=== PATIENT | female | born 1990 | race Caucasian/White ===

== ENCOUNTER 2020-12-04 16:25 | Outpatient (CLI) | payer OTHER ==
--- NOTE | 2020-12-04 17:13 | XRAY Report ---
PROCEDURE: Foot 3 View LT INDICATIONS: LEFT FOOT PAIN TECHNIQUE: 4 views of the foot were acquired. COMPARISON: None FINDINGS: Bones: Moderate hallux valgus is seen. Bipartite medial sesamoid of first metatarsal head is also not ed. No fractures or dislocations. No suspicious bony lesions. Soft tissues: No tibiotalar joint effusion. Achilles tendon appears normal. IMPRESSION: Moderate hallux valgus. No fracture or dislocation. No suspicious bony lesion. Reviewed by: Luciano Marshall MD on 12/04/2020 5:11 PM PDT Approved by: Luciano Marshall MD on 12/04/2020 5:11 PM PDT Station ID: [id number]
== END 2020-12-04 23:59 | disposition home or self-care (01) ==
LOC: DI.N 16:25
PROVIDERS: ATTEND Nurse Practitioner
DX: M20.12 Hallux valgus (acquired), left foot (principal)

== ENCOUNTER 2021-08-06 08:45 | Outpatient (CLI) | payer OTHER ==
--- NOTE | 2021-08-06 11:09 | MRI Report ---
PROCEDURE: Lumbar Spine W/O INDICATIONS: LOW BACK PAIN TECHNIQUE: Noncontrast sagittal T1 spin echo and T2 fast echo, sagittal STIR, axial T1 and T2 fast spin echo thr ough the lumbar spine. In cases with scoliosis, additional coronal T2 fast spin echo may be performe d. COMPARISON: None. FINDINGS: Image quality: Excellent. Alignment and Curvature: There is mild straightening of the normal lumbar lordosis, which may be sec ondary to positioning. Bone Marrow: Marrow is of normal overall signal. No acute vertebral body compression fractures. Spinal Cord: Conus medullaris terminates at the L1 vertebral body level. Visualized cord demonstrat es normal signal and size. Paraspinous Soft Tissues: No paravertebral masses. T12-L1, L1-2, and L2-3: No significant disc bulging, spinal canal stenosis, or neuroforaminal narrow ing. L3-L4: There is disc desiccation and mild circumferential disc bulging with a small posterior annul ar fissure. Findings are superimposed on congenitally shortened pedicles and result in mild narrowing of the spinal canal without significant neural foraminal narrowing. L4-L5: There is disc desiccation and mild circumferential disc bulging with a small posterior annul ar fissure and mild facet hypertrophy. Findings are superimposed on congenitally shortened pedicles a nd result in mild narrowing of the spinal canal and crowding of the bilateral lateral recesses withou t significant neural foraminal narrowing. L5-S1: No significant disc bulging, spinal canal stenosis, or neuroforaminal narrowing. IMPRESSION: At the L3-4 and L4-5 levels, there are small posterior annular fissures as well as disc desiccation a nd circumferential disc bulging superimposed on congenitally shortened pedicles, which result in mild spinal canal narrowing at these levels without significant neuroforaminal narrowing. Reviewed by: Rex Cruz MD on 08/06/2021 11:08 AM PDT Approved by: Rex Cruz MD on 08/06/2021 11:08 AM PDT Station ID: [id number]
== END 2021-08-06 08:46 | disposition home or self-care (01) ==
LOC: DI 08:45
DX: M51.36 Other intervertebral disc degeneration, lumbar region (principal); M48.061 Spinal stenosis, lumbar region without neurogenic claudication; M47.816 Spondylosis without myelopathy or radiculopathy, lumbar region

== ENCOUNTER 2022-01-06 10:07 | Outpatient (CLI) | payer OTHER ==
--- NOTE | 2022-01-06 12:12 | MRI Report ---
PROCEDURE: Cervical Spine W/O INDICATIONS: CERVICALGIA TECHNIQUE: Noncontrast sagittal T1 spin echo and T2 fast spin echo, sagittal STIR, foraminal oblique sagittal T2 fast spin echo, and axial gradient echo or T2 fast spin echo through the cervical spine. COMPARISON: None. FINDINGS: Image quality: Excellent. Alignment and Curvature: Normal cervical spine vertebral body height and alignment. Bone Marrow: No suspicious focal marrow signal abnormality or bone marrow edema. Spinal Cord: Normal morphology and signal intensity of the cervical cord. Regional Soft Tissues: Partially visualized T2 hyperintense cystic lesion in the right prevertebral s oft tissues, with at least some septations or solid features of complexity at the inferior aspect, me asuring at least 3.2 cm in craniocaudal dimension and approximately 1.7 x 1.5 cm maximum axial dimens ion. This is incompletely characterized due to the presence of saturation bands through the anterior soft tissues. C2-C3: Normal in appearance. C3-C4: Normal in appearance. C4-C5: Normal in appearance. C5-C6: Normal in appearance. C6-C7: Normal in appearance. C7-T1: Normal in appearance. IMPRESSION: No spinal canal stenosis, neural foraminal stenosis, or evidence of focal nerve root impingement to e xplain the provided history of left radicular symptoms. No cord signal abnormality or other significant intradural pathology. Partially visualized cystic lesion in the prevertebral soft tissues right of midline with at least a few septations or solid/nodular features of complexity inferiorly. Complete characterization is recom mended with contrast-enhanced MRI or CT of the neck. 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 Reviewed by: Zeyad Jaeger MD on 01/06/2022 12:11 PM PDT Approved by: Zeyad Jaeger MD on 01/06/2022 12:11 PM PDT Station ID: [id number]
--- NOTE | 2022-01-07 13:06 | MRI Report ---
PROCEDURE: Thoracic Spine W/O INDICATIONS: CERVICALGIA TECHNIQUE: Noncontrast sagittal T1 spine echo and T2 fast spin echo, sagittal STIR, axial T1 and T2 fast spin ec ho through the thoracic spine. COMPARISON: MRI cervical spine 01/06/2022 FINDINGS: Image quality: Excellent. Alignment and Curvature: There is normal bony alignment. Bone Marrow: Marrow is of normal overall signal. No acute vertebral body compression fractures. Spinal Cord: Visualized spinal cord is normal in size and signal. Paraspinous Soft Tissues: No paravertebral masses. Miscellaneous: On axial images, central canal and foramina appear widely patent at all scanned level s. There is appearance of subcentimeter nodular intensities within the lungs bilaterally. Increased T2 signal focus is present within the lower right thyroid lobe and to a lesser degree left thyroid lo be as well as isthmus. No priors are available for comparison. IMPRESSION: No spinal stenosis or foraminal narrowing. Appearing nodular densities within the lungs as above. While these could be artifactual given respira tory motion, recommend CT chest for further evaluation. Heterogeneous focus of T2 hyperintensity within the right thyroid lobe into lesser extent isthmus and left lobe. These may represent cysts or adenomas. Thyroid ultrasound is recommended for further eval uation. Reviewed by: Nancy Logan MD on 01/07/2022 1:05 PM PDT Approved by: Nancy Logan MD on 01/07/2022 1:05 PM PDT Station ID: [id number]
== END 2022-01-06 10:08 | disposition home or self-care (01) ==
LOC: DI 10:07
DX: M54.2 Cervicalgia (principal); M79.9 Soft tissue disorder, unspecified; R91.8 Other nonspecific abnormal finding of lung field

== ENCOUNTER 2022-04-09 19:54 | Emergency (ER) | payer OTHER ==
--- OUTSIDE RECORDS SUMMARY | 2022-04-09 20:26 | EXTERNAL MEDICAL SUMMARY RPT | Continuity of Care Document ---
:1990 Author Organization [facility] Address [address] [place] [address] Phone Care Team Providers Name Role Phone Unavailable Unavailable Unavailable Narewski Barrel Coater, Xochilt Unavailable Unavailable Dangelo Shell Pa-C Unavailable Unavailable Narewski Barrel Coater, Xochilt Unavailable Unavailable Sylvia, Provider Unavailable Unavailable Allergies No information. Encounters No information. Functional Status No information. Immunizations No information. Medications date description facility 2022-01-12 00:00 propranolol All 2022-03-19 00:00 propranolol All 2022-03-19 00:00 propranolol All 2022-03-23 00:00 propranolol All 2022-01-12 00:00 prazosin All 2022-03-19 00:00 prazosin All 2022-03-19 00:00 prazosin All 2022-03-23 00:00 prazosin All 2022-01-12 00:00 hydroxyzine hcl All 2022-03-19 00:00 hydroxyzine hcl All 2022-03-19 00:00 hydroxyzine hcl All 2022-03-23 00:00 hydroxyzine hcl All 2022-01-12 00:00 hydroxyzine hcl All 2022-03-19 00:00 hydroxyzine hcl All 2022-03-19 00:00 hydroxyzine hcl All 2022-03-23 00:00 hydroxyzine hcl All 2022-01-12 00:00 methocarbamol All 2022-03-19 00:00 methocarbamol All 2022-03-19 00:00 methocarbamol All 2022-03-23 00:00 methocarbamol All 2022-01-12 00:00 prazosin All 2022-03-19 00:00 prazosin All 2022-03-19 00:00 prazosin All 2022-03-23 00:00 prazosin All 2022-01-12 00:00 propranolol All 2022-03-19 00:00 propranolol All 2022-03-19 00:00 propranolol All 2022-03-23 00:00 propranolol All 2022-01-12 00:00 methocarbamol All 2022-03-19 00:00 methocarbamol All 2022-03-19 00:00 methocarbamol All 2022-03-23 00:00 methocarbamol All 2022-01-12 00:00 fluoxetine All 2022-03-19 00:00 fluoxetine All 2022-03-19 00:00 fluoxetine All 2022-03-23 00:00 fluoxetine All 2022-01-12 00:00 fluoxetine All 2022-03-19 00:00 fluoxetine All 2022-03-19 00:00 fluoxetine All 2022-03-23 00:00 fluoxetine All 2022-01-12 00:00 prazosin All 2022-03-19 00:00 prazosin All 2022-03-19 00:00 prazosin All 2022-03-23 00:00 prazosin All 2022-01-12 00:00 methocarbamol All 2022-03-19 00:00 methocarbamol All 2022-03-19 00:00 methocarbamol All 2022-03-23 00:00 methocarbamol All 2022-01-12 00:00 propranolol All 2022-03-19 00:00 propranolol All 2022-03-19 00:00 propranolol All 2022-03-23 00:00 propranolol All 2022-01-12 00:00 prazosin All 2022-03-19 00:00 prazosin All 2022-03-19 00:00 prazosin All 2022-03-23 00:00 prazosin All 2022-01-12 00:00 fluoxetine All 2022-03-19 00:00 fluoxetine All 2022-03-19 00:00 fluoxetine All 2022-03-23 00:00 fluoxetine All 2022-01-12 00:00 hydroxyzine hcl All 2022-03-19 00:00 hydroxyzine hcl All 2022-03-19 00:00 hydroxyzine hcl All 2022-03-23 00:00 hydroxyzine hcl All 2022-01-12 00:00 fluoxetine All 2022-03-19 00:00 fluoxetine All 2022-03-19 00:00 fluoxetine All 2022-03-23 00:00 fluoxetine All 2022-01-12 00:00 methocarbamol All 2022-03-19 00:00 methocarbamol All 2022-03-19 00:00 methocarbamol All 2022-03-23 00:00 methocarbamol All 2022-01-12 00:00 propranolol All 2022-03-19 00:00 propranolol All 2022-03-19 00:00 propranolol All 2022-03-23 00:00 propranolol All 2022-01-12 00:00 hydroxyzine hcl All 2022-03-19 00:00 hydroxyzine hcl All 2022-03-19 00:00 hydroxyzine hcl All 2022-03-23 00:00 hydroxyzine hcl All Problems date description facility 2022-03-19 00:00 Avulsion of toenail All 2022-03-19 00:00 Avulsion of toenail All 2022-03-19 00:00 Avulsion of toenail All 2022-03-19 00:00 Laceration without foreign body of left great toe with All damage to nail, initial encounter 2022-03-19 00:00 Laceration without foreign body of left great toe with All damage to nail, initial encounter 2022-03-19 00:00 Laceration without foreign body of left great toe with All damage to nail, initial encounter Procedures date description facility 2022-03-19 00:00 Visit Code Hold All 2022-03-19 00:00 Visit Code Hold All 2022-03-19 00:00 Visit Code Hold All Results/Labs No information. Social History No information. Vital Signs date measurement value units 2022-03-19 00:00 BMI 24.68 kg/m2 2022-03-19 00:00 BP_diastolic 75 mmHg 2022-03-19 00:00 BP_systolic 104 mmHg 2022-03-19 00:00 heart_rate 74 /min 2022-03-19 00:00 height_metric 170.18 cm 2022-03-19 00:00 height_standard 67 in 2022-03-19 00:00 respiration_rate 16 /min 2022-03-19 00:00 temperature_metric 36.44 C 2022-03-19 00:00 temperature_standard 97.6 F 2022-03-19 00:00 weight_metric 71.21 kg 2022-03-19 00:00 weight_standard 157 lb
[2022-04-09] MEDS ORDERED: IBUPROFEN 600 MG TABLET PO STA (21:22)
[2022-04-09] MEDS ORDERED: HYDROcod/ACET 5/325 Prepack 4 PO STA (21:23)
--- NOTE | 2022-04-09 21:31 | XRAY Report ---
PROCEDURE: Ribs w/PA Chest RT INDICATIONS: fell snowboarding, c/o R rib cage pain. TECHNIQUE: 2 views of the right ribs were acquired, along with a single view chest. COMPARISON: None. FINDINGS: Surgical changes and devices: None. Bones and chest wall: No displaced rib fracture identified. No suspicious bony lesions. Overlying s oft tissues appear unremarkable. Lungs and pleura: No pleural effusions or pneumothorax. Lungs appear clear. Mediastinum: Mediastinal contours appear normal. Heart size is normal. IMPRESSION: 1. No displaced rib fracture identified. Reviewed by: Kaushal Cutler MD on 04/09/2022 9:30 PM PST Approved by: Kaushal Cutler MD on 04/09/2022 9:30 PM PST Station ID: [id number]
--- NOTE | 2022-04-09 21:45 | ED Physician Documentation ---
History of Present Illness - Stated complaint Stated Complaint: RIB PX - Chief complaint Chief Complaint: Trauma Ch/Bk - History obtained from History obtained from: Patient - History of Present Illness Timing: How many days ago (5) Pain level now: 6 Improved by: rest Worsened by: movement, palpation, deep inspiration - Additonal information Additional information: HPI from patient. Patient complains of right upper anterior chest pain as well as some right upper parathoracic back pain. This pain was of sudden onset 5 days ago when she fell while snowboarding in [place]. Denies head injury, denies loss of consciousness.Pain is distinctly worse with palpation, deep inspiration.She denies cough, hemoptysis, shortness of breath.She has not taken anything for this pain. Review of Systems Constitutional: denies: Fever Cardiac: reports: Chest pain / pressure Respiratory: denies: Dyspnea, Cough, Hemoptysis GI: denies: Abdominal Pain : denies: Now EGA Musculoskeletal: reports: Back pain (right upper parathoracic). denies: Neck pain, Extremity pain, Joint pain Neurologic: denies: Headache, Head injury, LOC PD PAST MEDICAL HISTORY - Past Medical History Past Medical History: No - Present Medications Home Medications: Ambulatory Orders Medication Instructions Recorded Confirmed HYDROcod/ACETAM 5/325 [[place] 5/325] 1 - 2 tablet PO Q6H PRN #14 tablet 04/09/22 Ibuprofen [Motrin] 600 mg PO Q6H PRN #20 tab 04/09/22 - Allergies Allergies/Adverse Reactions: Allergies Allergy/AdvReac Type Severity Reaction Status Date / Time No Known Drug Allergies Allergy Verified 04/09/22 20:36 PD ED PE NORMAL - Vitals Vital signs reviewed: Yes - General General: Alert and oriented X 3, No acute distress, Well developed/nourished - Respiratory Respiratory: No respiratory distress, Clear bilaterally - Abdomen Abdomen: Soft, Non tender - Back Back: No spinal TTP PD ED PE EXPANDED - Cardiac Cardiac: Chest wall TTP (right anterior upper chest wall ) Results - Vitals Vitals: Vital Signs - 24 hr 04/09/22 20:33 Temperature 36.0 C L Heart Rate 75 Respiratory 15 Rate Blood Pressure 108/70 O2 Saturation 99 Oxygen O2 Source Room air - Rads (name of study) right ribs w/ PA chest xrays Radiology: Prelim report reviewed, EMP read indepedently, See rad report PD Medical Decision Making - ED course Complexity details: reviewed results, considered differential, d/w patient ED course: HPI is from patient. Plain film x-rays of the right ribs along with a single view PA chest were performed. I see no evidence of abnormality on these x-rays, specifically no evidence of rib fracture, hemo-/pneumothorax, pulmonary contusion. Results were discussed with patient. At this time, the presumed diagnosis is chest wall contusion. She has not taken anything for the pain yet. She says she had difficulty sleeping last night because of the pain. She is given 600 mg ibuprofen p.o. in the ER prior to discharge, and I provided a take-home pack of Vicodin to be used if the ibuprofen alone is ineffective. Return precautions were discussed including returning for pain that is not controlled with the prescribed medication (Vicodin), shortness of breath, coughing (particularly hemoptysis). I am prescribing a short course of short-acting opioid pain medication for this patient. I have reviewed the patients BOX SEALING INSPECTOR and no concerning findings were noted. I have discussed that the opioids are for short term therapy only, and will not be refilled from the ED. Departure - Departure Disposition: Home, Self Care Clinical Impression: Chest wall contusion Qualifiers: Encounter type: initial encounter Laterality: right Qualified Code(s): S20.211A - Contusion of right front wall of thorax, initial encounter Condition: Good Instructions: ED Contusion Chest Wall Follow-Up: KEYANA VEGAS, [Primary Care Provider] - (4-5 days if pain has not resolved) Prescriptions: Ibuprofen [Motrin] 600 mg PO Q6H PRN #20 tab PRN Reason: Pain HYDROcod/ACETAM 5/325 [[place] 5/325] 1 - 2 tablet PO Q6H PRN #14 tablet PRN Reason: Pain Comments: The x-rays are normal. There is no evidence of any fractures of your ribs, no evidence of any injury to your lungs. Based on the nature of the accident and your description of your symptoms, the presumed diagnosis is a chest wall contusion (see the accompanying discharge instructions regarding this diagnosis). Prescriptions for ibuprofen and Vicodin (a strong, narcotic pain medication) have been electronically submitted to [facility] pharmacy in [place]. I am prescribing a short course of narcotic pain medication for you. These are potentially dangerous and addictive medications that should be used carefully. These medications may constipate you. Take an vwmn-ocf-bjhqqgi stool softener (docusate) twice daily with plenty of water while taking these medications. If you go 24 hours without a bowel movement, take aytd-asy-piduzyy miralax, per package instructions. Do not drink or drive while taking these medications. If you received narcotic or sedating medications while in the emergency department, do not drive for 24 hours. Store this medication in a safe, secure place and out of reach of children. It is a violation of federal law to give or sell this medication to another person or to use in a manner other than prescribed. The ED will not refill narcotic prescriptions, including prescriptions lost or stolen. To dispose of unwanted medications: 1. [facility] at [address] in [place] has a medication drop box. They accept prescription medications (in pill form) Tuesday through Tuesday 9:00 a.m. to 5:00 p.m. 2. The [facility] accepts prescription medications (in pill form only) for disposal year round. Call for more information. 3. Contact the [facility] for the next [facility] sponsored prescription drug collection event. , [phone], or [phone];
[2022-04-09 21:51] VITALS: BP 109/60
== END 2022-04-09 21:49 | disposition home or self-care (01) ==
LOC: ED 19:54
DX: S20.211A Contusion of right front wall of thorax, initial encounter (principal); W19.XXXA Unspecified fall, initial encounter; Y93.23 Activity, snow (alpine) (downhill) skiing, snowboarding, sledding, tobogganing and snow tubing
CPT/HCPCS: 71101; 99283; A9270

== ENCOUNTER 2022-05-07 21:53 | Emergency (ER) | payer OTHER ==
--- NOTE | 2022-05-07 22:22 | ED Physician Documentation ---
History of Present Illness - Stated complaint Stated Complaint: INGESTION OF SOUP MIXER - Chief complaint Chief Complaint: Abd Pain - History obtained from History obtained from: Patient - History of Present Illness Timing: How many hours ago (About 1 hour ago the patient mistakenly drank Simple Green dispensing and measuring optician and concentrated form. Her roommate had put it into a coconut milk jar to condense the size. The patient started drinking it thinking it was the coconut milk and had 2 or 3 good gulps before noticing bitter taste.) Review of Systems Constitutional: denies: Fever, Chills Cardiac: denies: Chest pain / pressure Respiratory: denies: Dyspnea, Cough GI: reports: Nausea, Vomiting (few times shortly after the ingestion). denies: Diarrhea, Hematemesis Neurologic: denies: Generalized weakness, Near syncope PD PAST MEDICAL HISTORY - Past Medical History Cardiovascular: None Respiratory: None Neuro: None Endocrine/Autoimmune: None - Present Medications Home Medications: Ambulatory Orders Medication Instructions Recorded Confirmed Lidocaine Viscous 2% [Xylocaine 5 ml PO Q4H PRN #100 ml 05/07/22 Viscous 2%] - Allergies Allergies/Adverse Reactions: Allergies Allergy/AdvReac Type Severity Reaction Status Date / Time No Known Drug Allergies Allergy Verified 05/07/22 22:02 PD ED PE NORMAL - Vitals Vital signs reviewed: Yes - General General: Alert and oriented X 3, No acute distress (she is spitting up saliva with some slight greenish color. She states that she can swallow and does not feel blocked, but has extra saliva and wants to spit it out. ), Well developed/nourished - HEENT HEENT: Pharynx benign - Neck Neck: Supple, no meningeal sign, No adenopathy - Cardiac Cardiac: RRR, No murmur - Respiratory Respiratory: Clear bilaterally - Abdomen Abdomen: Soft, Non tender, Non distended Results - Vitals Vitals: Vital Signs - 24 hr 05/07/22 05/07/22 21:57 23:23 Temperature 36.0 C L Heart Rate 79 60 Respiratory 16 18 Rate Blood Pressure 113/64 107/73 O2 Saturation 100 100 Oxygen O2 Source Room air PD Medical Decision Making - ED course Complexity details: re-evaluated patient (she feels improved esophageal and stomach discomfort after antacid/lido. ), considered differential, d/w patient, d/w client consultant (Poison [facility] was contacted and gave information and recommendations. The Simple Green brush cleaner is neutrl pH, not caustic and will cause mucosal irritation but no erosions. Not absorbed so no metabolic effect. ) Departure - Departure Disposition: 01 Home, Self Care Clinical Impression: Accidental ingestion of substance Condition: Stable Record reviewed to determine appropriate education?: Yes Instructions: ED Ingestion Non Toxic Ch Follow-Up: KEYANA VEGAS DO [Primary Care Provider] - Prescriptions: Lidocaine Viscous 2% [Xylocaine Viscous 2%] 5 ml PO Q4H PRN #100 ml PRN Reason: Pain Comments: We did consult poison control and the information from them is that this would be a neutral pH (not acidic nor lye caustic) and would not absorb metabolically. It would cause a local irritation of the throat/esophagus/stomach that should heal and improve with time. You can stay well-hydrated and drink lots of water. Ice chips may provide some relief with symptoms. You can use antacids such as Maalox or Mylanta type medications to help with esophageal and stomach irritation. I did write a prescription for some lidocaine like what we gave you here that can be mixed with Benadryl liquid or antacid. Benadryl liquid also has a numbing effect within the throat and esophagus and can be used every 6 hours if needed. I would anticipate improvement into tomorrow and resolved by 1 to 2 days. Recheck if not better in that timeframe and return if worsening. Discharge Date/Time: 05/07/22 23:23
[2022-05-07] MEDS ORDERED: diphenhydrAMINE ELIXIR 25 MG/10 ML UDC PO STA (22:31)
[2022-05-07] MEDS ORDERED: MAG HYDROX/AL HYDROX/SIMETH 30 ML UDC PO STA (22:31)
[2022-05-07] MEDS ORDERED: LIDOCAINE VISCOUS 2% 15 ML ORAL SYRINGE MM STA (22:31)
[2022-05-07 23:24] VITALS: BP 107/73
== END 2022-05-07 23:23 | disposition home or self-care (01) ==
LOC: ED 21:53
DX: T65.891A Toxic effect of other specified substances, accidental (unintentional), initial encounter (principal)
CPT/HCPCS: 99282; 99283; A9270

== ENCOUNTER 2022-06-07 14:12 | Emergency (ER) | payer OTHER ==
--- OUTSIDE RECORDS SUMMARY | 2022-06-07 15:32 | EXTERNAL MEDICAL SUMMARY RPT | Continuity of Care Document ---
:1990 Author Organization [facility] Address [address] [place] [address] Phone Care Team Providers Name Role Phone Unavailable Unavailable Unavailable [place] Fats And Oils Loader, Xochilt Unavailable Unavailable Dangelo Shell Pa-C Unavailable Unavailable Narkaushalki Fats And Oils Loader, Xochilt Unavailable Unavailable Allergies No information. Encounters No information. Functional Status No information. Immunizations No information. Medications date description facility 2022-03-19 00:00 propranolol All 2022-03-19 00:00 propranolol All 2022-03-23 00:00 propranolol All 2022-03-19 00:00 prazosin All 2022-03-19 00:00 prazosin All 2022-03-23 00:00 prazosin All 2022-03-19 00:00 hydroxyzine hcl All 2022-03-19 00:00 hydroxyzine hcl All 2022-03-23 00:00 hydroxyzine hcl All 2022-03-19 00:00 hydroxyzine hcl All 2022-03-19 00:00 hydroxyzine hcl All 2022-03-23 00:00 hydroxyzine hcl All 2022-03-19 00:00 methocarbamol All 2022-03-19 00:00 methocarbamol All 2022-03-23 00:00 methocarbamol All 2022-03-19 00:00 prazosin All 2022-03-19 00:00 prazosin All 2022-03-23 00:00 prazosin All 2022-03-19 00:00 propranolol All 2022-03-19 00:00 propranolol All 2022-03-23 00:00 propranolol All 2022-03-19 00:00 methocarbamol All 2022-03-19 00:00 methocarbamol All 2022-03-23 00:00 methocarbamol All 2022-03-19 00:00 fluoxetine All 2022-03-19 00:00 fluoxetine All 2022-03-23 00:00 fluoxetine All 2022-03-19 00:00 fluoxetine All 2022-03-19 00:00 fluoxetine All 2022-03-23 00:00 fluoxetine All 2022-03-19 00:00 prazosin All 2022-03-19 00:00 prazosin All 2022-03-23 00:00 prazosin All 2022-03-19 00:00 methocarbamol All 2022-03-19 00:00 methocarbamol All 2022-03-23 00:00 methocarbamol All 2022-03-19 00:00 propranolol All 2022-03-19 00:00 propranolol All 2022-03-23 00:00 propranolol All 2022-03-19 00:00 prazosin All 2022-03-19 00:00 prazosin All 2022-03-23 00:00 prazosin All 2022-03-19 00:00 fluoxetine All 2022-03-19 00:00 fluoxetine All 2022-03-23 00:00 fluoxetine All 2022-03-19 00:00 hydroxyzine hcl All 2022-03-19 00:00 hydroxyzine hcl All 2022-03-23 00:00 hydroxyzine hcl All 2022-03-19 00:00 fluoxetine All 2022-03-19 00:00 fluoxetine All 2022-03-23 00:00 fluoxetine All 2022-03-19 00:00 methocarbamol All 2022-03-19 00:00 methocarbamol All 2022-03-23 00:00 methocarbamol All 2022-03-19 00:00 propranolol All 2022-03-19 00:00 propranolol All 2022-03-23 00:00 propranolol All 2022-03-19 00:00 hydroxyzine hcl All 2022-03-19 [...]
--- NOTE | 2022-06-07 16:29 | MRI Report ---
PROCEDURE: LUMBAR SPINE WO INDICATIONS: Back pain with incontinence TECHNIQUE: Noncontrast sagittal T1 spin echo and T2 fast echo, sagittal STIR, axial T1 and T2 fast spin echo thr ough the lumbar spine. In cases with scoliosis, additional coronal T2 fast spin echo may be performe d. COMPARISON: None. FINDINGS: Image quality: Excellent. Alignment and Curvature: There is normal bony alignment. Bone Marrow: Marrow is of normal overall signal. No acute vertebral body compression fractures. Spinal Cord: Conus medullaris terminates at the L1 level. Visualized cord demonstrates normal signa l and size. Paraspinous Soft Tissues: No paravertebral masses. T12-L1: Normal in appearance. L1-L2: Normal in appearance. L2-L3: Normal in appearance. L3-L4: Broad-based disc bulge. L4-L5: Broad-based disc bulge. L5-S1: Trace right facet arthrosis. IMPRESSION: Mild disc height loss at L3-4 and L4-5. No significant spinal canal or neural foraminal narrowing. Reviewed by: Connor Gannon on 06/07/2022 4:27 PM PDT Approved by: Connor Gannon on 06/07/2022 4:27 PM PDT Station ID: [id number]
--- NOTE | 2022-06-07 16:48 | ED Physician Documentation ---
PD HPI BACK PAIN - Stated complaint Stated Complaint: FEMALE - Chief complaint Chief Complaint: Back Pain - History obtained from History obtained from: Patient - History of Present Illness Timing - onset: How many days ago (several days of worsening back pain with spasms, and some intermittent numbness left foot. Feeling of unable to fully empty bladder. Has had similar in the past episodically rleated to HNPs lower back. Usually without pain. Went to Walk In and referred to ER for emergent MRI due to above complaint.) Timing - duration: Days Timing - details: Gradual onset, Still present Location: Lower, Right, Left Quality: Pain, Spasm. No: Sharp Associated symptoms: Numbness (left foot intermittent), Unable to urinate (feeling of incomplete emptying). No: Fever, Weakness, Incontinent of urine Worsened by: Movement Contributing factors: Twisting. No: Trauma Similar symptoms before: Diagnosis (back pain with sciatica due to herniated discs.) Review of Systems Constitutional: denies: Fever, Chills Skin: denies: Rash Neurologic: denies: Focal weakness PD PAST MEDICAL HISTORY - Past Medical History Cardiovascular: None Respiratory: None Neuro: None Endocrine/Autoimmune: None - Present Medications Home Medications: Ambulatory Orders Medication Instructions Recorded Confirmed Cyclobenzaprine [Flexeril] 10 mg PO TID PRN #20 tablet 06/07/22 Meloxicam [Mobic] 7.5 mg PO BID 10 Days #20 tablet 06/07/22 Oxycodone HCl/Acetaminophen 1 each PO Q6H PRN #20 tablet 06/07/22 [Percocet 5-325 mg Tablet] Prazosin HCl [Minipress] 2 mg PO DAILY PM 06/07/22 06/07/22 Propranolol [Inderal] 10 mg PO DAILY PM 06/07/22 06/07/22 hydrOXYzine HCL [Hydroxyzine HCl] 25 mg PO DAILY PRN 06/07/22 06/07/22 methocarbamoL [Methocarbamol] 500 mg PO PRN PRN 06/07/22 06/07/22 oxyCODONE [Roxicodone] 5 mg PO Q6H PRN #20 tablet 06/07/22 - Allergies Allergies/Adverse Reactions: Allergies Allergy/AdvReac Type Severity Reaction Status Date / Time No Known Drug Allergies Allergy Verified 06/07/22 14:25 PD ED PE NORMAL - Vitals Vital signs reviewed: Yes - General General: Alert and oriented X 3, Well developed/nourished, Other (appears uncomfortable with guarded rom of the lower back. ) - Female Female : Deferred - Rectal Rectal: Deferred - Derm Derm: Normal color, Warm and dry, No rash - Neuro Neuro: Alert and oriented X 3, No motor deficit, No sensory deficit, Normal speech Results - Vitals Vitals: Vital Signs - 24 hr 06/07/22 06/07/22 14:19 17:07 Temperature 36.5 C Heart Rate 78 60 Respiratory 16 16 Rate Blood Pressure 120/73 101/62 O2 Saturation 96 100 Oxygen O2 Source Room air - Rads (name of study) lumbar MRI Relevant Findings:: Prelim report reviewed (broad based disc protrusions lower lumbar without any encroachment to the central canal. ), See rad report PD Medical Decision Making - ED course Complexity details: reviewed results, considered differential (MRI lumbar without any signs of caudal/central canal extrusion or crowding. ), d/w patient ED course: intermittent lower back pain, with current episode a bit worse than prior. Has some mild bladder symptoms. Referred from Walk In for MRI spine to eval for caudal crowding. She drove herself here so not given any sedating meds. She is okay waiting until home with oral meds. Given PO dose of steroid as this can help with disc processes at times. Departure - Departure Disposition: 01 Home, Self Care Clinical Impression: Low back pain Qualifiers: Chronicity: acute Back pain laterality: bilateral Sciatica presence: with sciatica Sciatica laterality: sciatica laterality unspecified Qualified Code(s): M54.40 - Lumbago with sciatica, unspecified side Condition: Stable Record reviewed to determine appropriate education?: Yes Instructions: ED Low Back Pain Injury, ED Sciatica Follow-Up: RITU PATTON MD [Primary Care Provider] - Prescriptions: Cyclobenzaprine [Flexeril] 10 mg PO TID PRN #20 tablet PRN Reason: Spasms Meloxicam [Mobic] 7.5 mg PO BID 10 Days #20 tablet Oxycodone HCl/Acetaminophen [Percocet 5-325 mg Tablet] 1 each PO Q6H PRN #20 tablet PRN Reason: pain oxyCODONE [Roxicodone] 5 mg PO Q6H PRN #20 tablet PRN Reason: Pain Comments: Your MRI shows a couple of disc protrusions at the lower lumbar. There is no encroachment on the central canal or conus nodularis. We can treat your back pain with muscle relaxants and anti-inflammatories and add pain medicine if needed. I prescribed Flexeril and meloxicam for this. To it at all and every 4-6 hours if needed for pain. At Percocet instead if needed for worse pain. Continue with your subsequent stretching heat chiropractic and massage as improves it. Off work for the next 3 days to help with healing time. I sent your prescription to [facility] pharmacy. They did not have the oxycodone itself in stock so prescribed the oxycodone with acetaminophen so you will need to modulate the total amount of acetaminophen per day to less than 3000 m g. I am prescribing a short course of narcotic pain medication for you. These are potentially dangerous and addictive medications that should be used carefully. These medications may constipate you. Take an kzjy-bse-dfawrti stool softener such as docusate twice daily with plenty of water while taking these medications. If you go 24 hours without a bowel movement, take [id number] MiraLAX, per package instructions. Do not drink or drive while taking these medications. If you received narcotic or sedating medications while in the emergency department do not drive for 24 hours. Store this medication in a safe, secure place and out of reach of children. It is a violation of federal law to give or sell this medication to another person or to use in a manner other than prescribed. The ED will not refill narcotic prescriptions, including prescriptions lost or stolen. You can dispose of unwanted medications at the [facility]'s office or at several pharmacies such as [facility]. Forms: Activity restrictions Discharge Date/Time: 06/07/22 17:16
[2022-06-07] MEDS: ACETAMINOPHEN 500 MG TABLET PO STA (16:59)
[2022-06-07] MEDS: DEXAMETHASONE 10 MG/ML VIAL PO STA (16:59)
[2022-06-07] MEDS: CHERRY SYRUP 10 ML UDC PO ONE (16:59)
[2022-06-07 17:07] VITALS: BP 101/62
== END 2022-06-07 17:16 | disposition home or self-care (01) ==
LOC: ED 14:12
DX: M54.50 Low back pain, unspecified (principal)
CPT/HCPCS: 72148; 99284; A9270

== ENCOUNTER 2022-08-10 10:17 | Outpatient (CLI) | payer OTHER ==
--- NOTE | 2022-08-10 10:44 | Sleep Patient Instructions ---
Sleep Center Visit Summary - Patient Visit Information Reason for Visit: Initial consult for evaluation of sleep disordered breathing and other sleep issues. - Patient Instructions Instructions Attached: Sleep Study, Sleep Clinic Visit Additional Instructions: You will be completing a sleep study, either an in-lab polysomnography (PSG) or home sleep study (HST). You will follow-up in the sleep care office after the sleep study is completed to hear the results and talk about therapy, if needed. You will be called by our office staff to schedule this appointment, but you may contact us with any questions. - Clinic Information Contact: [facility] [address] [place] [address] [email or web address] T: [phone]
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
[2022-08-10 11:19] VITALS: BP 110/62
== END 2022-08-10 10:18 | disposition home or self-care (01) ==
LOC: SC 10:17
PROVIDERS: ATTEND Nurse Practitioner Family
DX: R06.83 Snoring (principal); G47.8 Other sleep disorders; R51.9 Headache, unspecified; G47.10 Hypersomnia, unspecified; R53.83 Other fatigue; F32.A Depression, unspecified
CPT/HCPCS: 99203; 99212

== ENCOUNTER 2022-09-08 19:43 | Outpatient (CLI) | payer OTHER | END 2022-09-08 19:44 | disposition home or self-care (01) | LOC: SC 19:43 | PROVIDERS: ATTEND Nurse Practitioner Family | DX: R06.83 Snoring (principal) | CPT/HCPCS: 95810 ==

== ENCOUNTER 2023-02-23 08:00 | Outpatient (CLI) | payer OTHER ==
[2023-02-24 12:11] LABS: CHLAMYDIA TRACHOMATIS DNA NEGATIVE (NEGATIVE); NEISSERIA GONORRHOEAE DNA NEGATIVE (NEGATIVE); TRICHOMONAS VAGINALIS DNA NEGATIVE (NEGATIVE)
== END 2023-02-23 23:59 | disposition home or self-care (01) ==
LOC: LAB.WC 08:00
PROVIDERS: ATTEND Obstetrics & Gynecology
DX: Z11.3 Encounter for screening for infections with a predominantly sexual mode of transmission (principal)
CPT/HCPCS: 87491; 87591; 87661

== ENCOUNTER 2023-04-21 08:00 | Outpatient (CLI) | payer OTHER ==
[2023-04-21 20:19] LABS: CHLAMYDIA TRACHOMATIS DNA NEGATIVE (NEGATIVE); NEISSERIA GONORRHOEAE DNA NEGATIVE (NEGATIVE)
[2023-04-21 20:28] LABS: BACTERIAL VAGINOSIS DNA NEGATIVE (NEGATIVE); CANDIDA GLABRATA DNA NEGATIVE (NEGATIVE); CANDIDA GROUP DNA NEGATIVE (NEGATIVE); CANDIDA KRUSEI DNA NEGATIVE (NEGATIVE); TRICHOMONAS VAGINALIS DNA NEGATIVE (NEGATIVE)
== END 2023-04-21 23:59 | disposition home or self-care (01) ==
LOC: LAB.WC 08:00
PROVIDERS: ATTEND Nurse Practitioner
DX: N89.8 Other specified noninflammatory disorders of vagina (principal)
CPT/HCPCS: 81514; 87491; 87591; 87661

== ENCOUNTER 2023-10-08 18:54 | Emergency (ER) | payer OTHER ==
[2023-10-08 19:41] LABS: BASOPHILS % (AUTO) 0.3 %; EOSINOPHILS # (AUTO) 0.1 10^3/uL (0.0-0.7); EOSINOPHILS % (AUTO) 0.5 %; HCT - HEMATOCRIT 36.6 % (37.0-47.0); HGB - HEMOGLOBIN 11.3 g/dL (12.0-16.0); LYMPHOCYTES # (AUTO) 2.9 10^3/uL (1.5-3.5); LYMPHOCYTES % (AUTO) 31.1 %; MEAN CORPUSCULAR HEMOGLOBIN 28.5 pg (27.0-31.0); MEAN CORPUSCULAR HGB CONC 30.9 g/dL (32.0-36.0); MEAN CORPUSCULAR VOLUME 92.4 fL (81.0-99.0); MEAN PLATELET VOLUME 8.9 fL (7.9-10.8); MONOCYTES # (AUTO) 0.8 10^3/uL (0.0-1.0); MONOCYTES % (AUTO) 8.8 %; NEUTROPHILS # (AUTO) 5.6 10^3/uL (1.5-6.6); PLT - PLATELET COUNT 249 10^3/uL (130-450); RED BLOOD COUNT 3.96 10^6/uL (4.20-5.40); RED CELL DISTRIBUTION WIDTH 12.5 % (12.0-15.0); WHITE BLOOD COUNT 9.4 x10^3/uL (4.8-10.8)
[2023-10-08] MEDS: SODIUM CHLORIDE 0.9% 1,000 ML IV STA (19:45)
[2023-10-08] MEDS: ONDANSETRON 4 MG/2 ML VIAL IVP STA (19:45)
--- NOTE | 2023-10-08 19:45 | ED Physician Documentation ---
History of Present Illness - Stated complaint Stated Complaint: ABD PX,N/V,HEADACHE - Chief complaint Chief Complaint: Abd Pain - History obtained from History obtained from: Patient - Additonal information Additional information: 32-year-old otherwise healthy woman was [place] [facility] and has been sick for about 2 weeks with fever at the outset, persistent stomach upset with nausea and diarrhea and achy muscles. She did take malaria prophylaxis she thinks with mefloquine while there. She did get 2 mosquito bites. One of her travelling partners got ill with similar sx, but is better. PD PAST MEDICAL HISTORY - Past Medical History Past Medical History: Yes Cardiovascular: None Respiratory: None Neuro: None Endocrine/Autoimmune: None Psych: Anxiety, Post traumatic stress disorder - Past Surgical History Past Surgical History: Yes - Present Medications Home Medications: Ambulatory Orders Medication Instructions Recorded Confirmed Dicyclomine [Bentyl] 1 - 2 tab PO QID PRN #20 cap 10/08/23 Ketorolac [Toradol] 10 mg PO Q6H PRN #15 tablet 10/08/23 Ondansetron Odt [Zofran] 4 mg TL Q6H PRN #10 tablet 10/08/23 Propranolol HCl 20 mg PO BID PRN 10/08/23 10/08/23 Venlafaxine ER [Effexor ER] 75 mg PO DAILY 10/08/23 10/08/23 Zolpidem [Ambien] 5 - 10 mg PO HS PRN 10/08/23 10/08/23 modafiniL [Modafinil] 200 mg PO DAILY 10/08/23 10/08/23 tiZANidine [Zanaflex] 4 mg PO Q6HR PRN 10/08/23 10/08/23 - Allergies Allergies/Adverse Reactions: Allergies Allergy/AdvReac Type Severity Reaction Status Date / Time No Known Drug Allergies Allergy Verified 10/08/23 18:58 - Social History Does the pt smoke?: No Smoking Status: Never smoker Does the pt drink ETOH?: Yes Does the pt have substance abuse?: No - Immunizations Immunizations are current?: Yes - POLST Patient has POLST: No PD ED PE NORMAL - Vitals Vital signs reviewed: Yes (Unremarkable vital signs) - General General: Alert and oriented X 3 - HEENT HEENT: PERRL, EOMI - Neck Neck: Supple, no meningeal sign, No bony TTP - Cardiac Cardiac: RRR, No murmur - Respiratory Respiratory: No respiratory distress, Clear bilaterally - Abdomen Abdomen: Soft, Other (Hyperactive bowel sounds with mild diffuse tenderness) - Derm Derm: No rash - Neuro Neuro: Alert and oriented X 3, Normal speech Results - Vitals Vitals: Vital Signs - 24 hr 10/08/23 10/08/23 10/08/23 18:59 19:58 21:01 Temperature 36.5 C Heart Rate 80 69 70 Respiratory 16 16 16 Rate Blood Pressure 126/75 114/58 L 112/67 O2 Saturation 100 100 99 Oxygen O2 Source Room air - Labs Labs: Laboratory Tests 10/08/23 10/08/23 10/08/23 19:15 19:15 20:30 WBC 9.4 RBC 3.96 L Hgb 11.3 L Hct 36.6 L MCV 92.4 MCH 28.5 MCHC 30.9 L RDW 12.5 Plt Count 249 MPV 8.9 Neut # (Auto) 5.6 Lymph # (Auto) 2.9 [place] # (Auto) 0.8 Eos # (Auto) 0.1 Baso # (Auto) 0.0 Absolute Nucleated RBC 0.00 Nucleated RBC % 0.0 Manual Slide Review Indicated Platelet Estimate NORMAL (130-450,000) Platelet Morphology NORMAL APPEARANCE RBC Morph Micro Appear NORMAL APPEARANCE Sodium 134 L Potassium 4.1 Chloride 104 Carbon Dioxide 27 Anion Gap 3.0 L BUN 16 Creatinine 0.8 Estimated GFR (MDRD) 84 L Glucose 96 Calcium 8.9 Total Bilirubin 0.4 AST 21 ALT 26 Alkaline Phosphatase 47 Total Protein 6.5 Albumin 4.1 Globulin 2.4 Albumin/Globulin Ratio 1.7 Urine Color LIGHT YELLOW Urine Clarity CLEAR Urine pH 6.5 Ur Specific [place] <=1.005 Urine Protein NEGATIVE Urine Glucose (UA) NEGATIVE Urine Ketones NEGATIVE Urine Occult Blood NEGATIVE Urine Nitrite NEGATIVE Urine Bilirubin NEGATIVE Urine Urobilinogen 0.2 (NORMAL) Ur Leukocyte Esterase NEGATIVE Ur Microscopic Review NOT INDICATED Urine Culture Comments NOT INDICATED Urine HCG, Qual NEGATIVE PD Medical Decision Making - ED course ED course: 32-year-old woman presents with muscle aches, fever, resolved, diarrhea and nausea after return from [place]. She appears well with normal vital signs and nothing on examination except for some hyperactive bowel sounds and very mild diffuse tenderness. Differential diagnosis would include the gamut of tropical illnesses including but not limited to dengue fever, malaria, or a variety of GI illnesses. Workup in the emergency department demonstrated a CBC that showed modest normocytic anemia but without significant change in her platelets or white blood cell count which decreases the pretest probability of a number of the tropical illnesses. CMP was grossly unremarkable as was her urinalysis. She was unable to produce a stool sample while in the emergency department but felt better after the administration of IV fluids, Zofran, and Toradol. I gave her an outpatient request for the stool studies as she would like to return to the hospital with these when she is able to produce a stool sample. Departure - Departure Disposition: Home, Self Care Clinical Impression: Tropical diarrhea, Nausea Condition: Good Record reviewed to determine appropriate education?: Yes Instructions: ED Gastroenteritis Viral Prescriptions: Dicyclomine [Bentyl] 1 - 2 tab PO QID PRN #20 cap PRN Reason: Abdominal Pain Ketorolac [Toradol] 10 mg PO Q6H PRN #15 tablet PRN Reason: aches Ondansetron Odt [Zofran] 4 mg TL Q6H PRN #10 tablet PRN Reason: Nausea / Vomiting Comments: Basic blood work and urinalysis were normal. This makes certain diagnoses such as dengue fever or malaria much less likely. That said more specific diagnostic testing for these is being performed. I think that it is the stool studies that are more likely to have a specific diagnostic impact for us so please return to the hospital when you are able to return a stool sample with the outpatient lab requisition attached to this form. Call your doctor to arrange a follow-up appointment, make the next available appointment. In the interim, return anytime if worse or if new symptoms develop. Forms: PCP List Discharge Date/Time: 10/08/23 21:20
[2023-10-08 19:57] LABS: ALBUMIN 4.1 g/dL (3.2-5.5); ALBUMIN/GLOBULIN RATIO 1.7 (1.0-2.2); BILIRUBIN,TOTAL 0.4 mg/dL (0.2-1.0); CALCIUM 8.9 mg/dL (8.5-10.3); CREATININE 0.8 mg/dL (0.6-1.3); POTASSIUM 4.1 mmol/L (3.5-4.5); TOTAL PROTEIN 6.5 g/dL (6.4-8.9)
[2023-10-08] MEDS: KETOROLAC 15 MG/ML VIAL IVP STA (20:04)
[2023-10-08 20:44] LABS: BILIRUBIN,URINE NEGATIVE (NEGATIVE); GLUCOSE, URINE (UA) NEGATIVE (NEGATIVE); KETONES,URINE (UA) NEGATIVE (NEGATIVE); LEUKOCYTE ESTERASE, URINE NEGATIVE (NEGATIVE); NITRITE,URINE NEGATIVE (NEGATIVE); OCCULT BLOOD,URINE NEGATIVE (NEGATIVE); PH,URINE 6.5 PH (5.0-7.5); PROTEIN,URINE NEGATIVE (NEGATIVE); UROBILINOGEN,URINE 0.2 (NORMAL) E.U./dL (NORMAL)
[2023-10-08 20:45] LABS: CLARITY,URINE CLEAR (CLEAR); HCG UR QUAL NEGATIVE
[2023-10-08] MEDS: DICYCLOMINE 10 MG CAPSULE PO STA (21:17)
[2023-10-08] MEDS: ONDANSETRON ODT 4 MG Prepack 2 TL STA (21:18)
[2023-10-08 21:22] LABS: PLATELET ESTIMATE, MANUAL NORMAL (130-450,000) (NORMAL); PLATELET MORPHOLOGY NORMAL APPEARANCE (NORMAL); RBC MORPHOLOGY (MULTIPLE) NORMAL APPEARANCE (NORMAL); SLIDE REVIEW? Indicated
[2023-10-08 21:28] VITALS: BP 112/67; O2SAT 99
--- NOTE | 2023-10-11 10:20 | ED Physician Documentation ---
ED Addendum - Addendum Addendum: 10/11/23 10:20 The patient's stool culture came back for enteropathogenic E. coli. Dr. Clark sent a prescription for azithromycin to [facility] for the patient. I spoke with her on the phone, informed her of the diagnosis and treatment.
== END 2023-10-08 21:20 | disposition home or self-care (01) ==
LOC: ED 18:54
DX: K52.1 Toxic gastroenteritis and colitis (principal); R11.0 Nausea; D64.9 Anemia, unspecified
CPT/HCPCS: 36415; 80053; 81003; 81025; 81599; 85025; 96361; 96374; 96375; 99284; A9270; 81001; 87086

== ENCOUNTER 2023-10-09 20:50 | Outpatient (CLI) | payer OTHER ==
[2023-10-11 03:10] LABS: ADENOVIRUS F 40/41 Not Detected (Not Detected); ASTROVIRUS Not Detected (Not Detected); C DIFFICILE TOXIN A/B Not Detected (Not Detected); CAMPYLOBACTER Not Detected (Not Detected); CRYPTOSPORIDIUM Not Detected (Not Detected); CYCLOSPORA CAYETANENSIS Not Detected (Not Detected); ENTAMOEBA HISTOLYTICA Not Detected (Not Detected); ENTEROAGGREGATIVE E COLI Not Detected (Not Detected); ENTEROPATHOGENIC E COLI Detected (Not Detected); ENTEROTOXIGENIC E COLI Not Detected (Not Detected); GIARDIA LAMBLIA Not Detected (Not Detected); NOROVIRUS GI/GII Not Detected (Not Detected); PLESIOMONAS SHIGELLOIDES Not Detected (Not Detected); ROTAVIRUS A Not Detected (Not Detected); SALMONELLA Not Detected (Not Detected); SAPOVIRUS Not Detected (Not Detected); SHIGA-TOXIN-PRODUCING E COLI Not Detected (Not Detected); SHIGELLA/ENTEROINVASIVE E COLI Not Detected (Not Detected); VIBRIO Not Detected (Not Detected); VIBRIO CHOLERAE Not Detected (Not Detected); YERSINIA ENTEROCOLITICA Not Detected (Not Detected)
--- NOTE | 2023-10-11 09:24 | ED Physician Documentation ---
ED Addendum - Addendum Addendum: 10/11/23 09:23 Subsequent stool + for EPEC. Sick ~2 weeks so reasonable to do abx. LVM for pt to call ED and sent rx for azithro 500mg po x 3 days to [facility].
== END 2023-10-09 20:51 | disposition home or self-care (01) ==
LOC: LAB.R 20:50
PROVIDERS: ATTEND Emergency Medicine
DX: R19.7 Diarrhea, unspecified (principal)
CPT/HCPCS: 87177; 87209; 87329; 87507

== ENCOUNTER 2023-11-03 12:44 | Outpatient (CLI) | payer OTHER | END 2023-11-03 12:45 | disposition home or self-care (01) | LOC: CAM 12:44 | PROVIDERS: ATTEND Nurse Practitioner Family | DX: M54.50 Low back pain, unspecified (principal); M79.673 Pain in unspecified foot; G89.29 Other chronic pain | CPT/HCPCS: 97810; 97811 ==

== ENCOUNTER 2023-12-08 09:18 | Emergency (ER) | payer OTHER ==
[2023-12-08 09:37] VITALS: O2SAT 100
--- NOTE | 2023-12-08 11:09 | ED Physician Documentation ---
History of Present Illness - Stated complaint Stated Complaint: BACK PX - Chief complaint Chief Complaint: Back Pain - Additonal information Additional information: Patient is a 33-year-old female presenting to the emergency department with r ight low back pain. Patient has chronic history of lower back pain. She follows with spine surgery and is scheduled for an injection on Tuesday. 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 Patient notes that her lower back pain is associated with chronic right sided radiculopathy. She notes she takes occasional muscle relaxers but this does not seem to help her pain as it just makes her feel sleepy. She denies any leg swelling. No incontinence. No fevers or chills. She has no saddle anesthesia. No history of IV drug use. No numbness to her right leg. She has no history of right leg numbness, but does not she will occasionally have tingling in her back and in her right foot. Patient notes this is a chronic problem for her and what caused her to retire from the . PD PAST MEDICAL HISTORY - Past Medical History Past Medical History: Yes Cardiovascular: None Respiratory: None Neuro: None Endocrine/Autoimmune: None Psych: Anxiety, Post traumatic stress disorder - Past Surgical History Past Surgical History: Yes - Present Medications Home Medications: Ambulatory Orders Medication Instructions Recorded Confirmed modafiniL [Modafinil] 200 mg PO DAILY 10/08/23 12/08/23 HYDROcod/ACETAM 5/325 [[place] 5/325] 1 - 2 tab PO Q6H PRN #15 tablet 12/08/23 LORazepam [Ativan] 0.5 mg PO PRN PRN 12/08/23 12/08/23 Lidocaine Patch 5% [Lidoderm Patch] 1 patch TOP DAILY PRN #10 patch 12/08/23 Naproxen 250 mg PO BID PRN #15 tablet 12/08/23 lamoTRIgine [LaMICtal] 25 mg PO HS PRN 12/08/23 12/08/23 predniSONE [Deltasone] 20 mg PO [id number] #21 tab 12/08/23 - Allergies Allergies/Adverse Reactions: Allergies Allergy/AdvReac Type Severity Reaction Status Date / Time No Known Drug Allergies Allergy Verified 12/08/23 09:35 - Social History Does the pt smoke?: No Smoking Status: Never smoker Does the pt drink ETOH?: Yes Does the pt have substance abuse?: No - Immunizations Immunizations are current?: Yes - POLST Patient has POLST: No PD ED PE NORMAL - Vitals Vital signs reviewed: Yes - General General: Alert and oriented X 3 - HEENT HEENT: Atraumatic - Neck Neck: Supple, no meningeal sign - Cardiac Cardiac: RRR, No murmur, No gallop, No rub - Respiratory Respiratory: No respiratory distress, Clear bilaterally - Back Back: No CVA TTP - Derm Derm: Normal color, Warm and dry, No rash - Extremities Extremities: No deformity, Other (Reproducible lower lumbar paraspinal muscle tenderness no spinous process tenderness no signs of bruising or swelling noted on examination.) - Neuro Neuro: Alert and oriented X 3 Eye Opening: Spontaneous Motor: Obeys Commands Verbal: Oriented GCS Score: 15 - Free text exam Free text exam: Patient has sensation intact to bilateral lower legs. No obvious swelling. Good capillary refill DP and PT pulses intact bilaterally. Positive straight leg raise on examination. Patient has no obvious deformity on exam. No leg swelling appreciated. Results - Vitals Vitals: Vital Signs - 24 hr 12/08/23 12/08/23 09:33 09:44 Temperature 36.3 C L Heart Rate 82 62 Respiratory 20 18 Rate Blood Pressure 120/73 119/66 O2 Saturation 100 100 Oxygen O2 Source Room air PD Medical Decision Making - ED course Complexity details: reviewed old records, reviewed results, re-evaluated patient ED course: Patient is a 33-year-old female presenting to the emergency department with lower back pain and right leg pain after kicking a box at work and causing severe pain radiating down from her lumbar region to her right leg. Patient notes no incontinence issues no numbness or tingling in bilateral legs. She was able to walk after that but has severe pain. Patient drove herself to the emergency department but does have some picking her up later. She denies any fevers or chills associate with symptoms. No previous surgeries to her lower back. She follows with spine surgery in the outpatient setting has an appointment on Tuesday for a steroid injection. She denies any saddle anesthesia. Vital stable on arrival. Physical exam shows positive straight leg raise on right leg with paraspinal muscle tenderness on examination. No obvious deformity no lumbar spine tenderness. Patient's symptoms seem secondary to lumbar sprain/strain versus worsening radiculopathy. Will give anti- inflammatories steroids and pain medications here to help with symptoms. Reevaluated patient after tramadol Toradol and lidocaine was given to patient. She is feeling slightly better pain appears more manageable to patient. Discussed with patient would like to have her start on short course of anti- inflammatories and steroids to help with her radiculopathy symptoms until she can follow-up with her spine surgeon on Tuesday. Patient is agreeable with this plan. She was given a short course of [place] to help with pain control at home. Instructed patient to return with any fevers incontinence issues loss of sensation difficulty walking or any new or worsening symptoms. Patient understands and is agreeable with this plan. Departure - Departure Disposition: , Self Care Clinical Impression: Lumbar back pain with radiculopathy affecting right lower extremity, Acute pain Condition: Good Instructions: ED Back Care Tips, ED Spasm Back No Trauma, ED Sprain Strain Lumbar Prescriptions: predniSONE [Deltasone] 20 mg PO [id number] #21 tab Lidocaine Patch 5% [Lidoderm Patch] 1 patch TOP DAILY PRN #10 patch PRN Reason: pain Naproxen 250 mg PO BID PRN #15 tablet PRN Reason: Pain HYDROcod/ACETAM 5/325 [[place] 5/325] 1 - 2 tab PO Q6H PRN #15 tablet PRN Reason: Pain Comments: You were seen here in the emergency department for your lower back pain. Your workup here in the emergency department showed no new acute findings. Symptoms most likely secondary to sprain/strain of your lower back worsening your radiculopathy symptoms. And sciatica symptoms. I have given you a short course of pain medication to help with your symptoms. You should rest and stretch at home to prevent worsening symptoms. You have an appointment with your spine surgeon on Tuesday please keep this appointment. You can return to the emergency department if you develop any fevers severe pain difficulty urinating incontinence issues, loss of sensation to the pelvic region or lower legs. He can return with any other new or worsening symptoms. I am prescribing a short course of narcotic pain medication for you. These are potentially dangerous and addictive medications that should be used carefully. These medications may constipate you. Take an ptqy-ool-cmyqsve stool softener (docusate) twice daily with plenty of water while taking these medications. If you go 24 hours without a bowel movement, take [id number] miralax, per pac consuelo instructions. Do not drink or drive while taking these medications. If you received narcotic or sedating medications while in the emergency department, do not drive for 24 hours. Store this medication in a safe, secure place and out of reach of children. It is a violation of federal law to give or sell this medication to another person or to use in a manner other than prescribed. The ED will not refill narcotic prescriptions, including prescriptions lost or stolen. To dispose of unwanted medications: 1. [facility] provides a [facility] box for medication in pill form only (no liquids) 8:00 am to 4:30 p.m. Tuesday-Tuesday in the lobby of the [facility], [address] [place] [address]. Empty pills into ziplock bag before disposal. Call [phone] for information. 2.[employer] is a free service available to all [facility] residents. Go to [email or web address] Note that many narcotic pain relievers also contain Tylenol/acetaminophen. Please ensure that your total dose of acetaminophen from all sources does not exceed 3 g (3000 mg) per day.
[2023-12-08] MEDS: LIDOCAINE PATCH 4% TOP STA (11:17)
[2023-12-08] MEDS: traMADol 50 MG TABLET PO STA (11:46)
[2023-12-08] MEDS: KETOROLAC 15 MG/ML VIAL IM STA (11:46)
[2023-12-08] MEDS: predniSONE 20 MG TABLET PO STA (12:55)
[2023-12-08 13:20] VITALS: BP 123/75
== END 2023-12-08 13:05 | disposition home or self-care (01) ==
LOC: ED 09:18
DX: M54.50 Low back pain, unspecified (principal); M54.16 Radiculopathy, lumbar region; Z79.899 Other long term (current) drug therapy
CPT/HCPCS: 96372; 99283; A9270; J7512

== ENCOUNTER 2023-12-20 09:46 | Outpatient (CLI) | payer OTHER | END 2023-12-20 09:47 | disposition home or self-care (01) | LOC: CAM 09:46 | PROVIDERS: ATTEND Nurse Practitioner Family | DX: M54.50 Low back pain, unspecified (principal); M79.673 Pain in unspecified foot; G89.29 Other chronic pain | CPT/HCPCS: 97810; 97811 ==